=== PATIENT | male | born 1955 | race Caucasian/White ===

== ENCOUNTER → 2017-03-20 | Outpatient (CLI) | payer OTHER ==
[~2017-03-20] MED LIST: ACID CONTROL20 MG PO; ADVAIR 250-501 EAC1; ADVAIR 250-501 EACH PO; ADVAIR 2501 DISK W/D PO; AGGRENOX1 CAP PO; ALBUTEROL 0.5ML INH; ALBUTEROL17 GM; ALBUTEROL17 GM INH; ALBUTEROL2.5 MG/0.5 INH; ALDACTONE PO; ALDACTONE100 MG PO; ALPRAZOLAM PO; AMBIEN PO; ASPIRIN ENTERI325 M1 PO; AZITHROMYCIN250 MG PO; BP PILL; CELEXA PO; COMBIVENT INH14.7 GM IH; COMBIVENT INH14.7 GM INH; COMBIVENT U/D3 M2 INH; CORGARD20 MG PO; CORTISPORIN-TC10 ML OT; DICLOFENAC PO; DICYCLOMINE HCL20 MG PO; DILANTIN; DILANTIN PO; ERY-TAB500 MG; FIORICET1 TAB PO; FLAGYL PO; FLEXERIL PO; FLEXERIL10 M1 PO; FLEXERIL10 MG PO; KEFLEX PO; KEFLEX500 MG PO; KETOPROFEN PO; KRISTALOSE10 GM PO; KRISTALOSE20 G/PK1 PO; LACTULOSE PO; LACTULOSE10 G/15 M1 PO; LASIX PO; LASIX20 MG PO; LEVAQUIN PO; LISINOPRIL; LISINOPRIL PO; LISINOPRIL10 MG PO; LISINOPRIL30 MG PO; LORTAB 5/500 TA1 TA1 PO; LORTAB 7.5-5001 TAB PO; NAPROXEN PO; NICOTINE TRANSD21 MG EXT; OMEPRAZOLE20 M1 PO; OMEPRAZOLE20 M2 PO; PHENERGAN; PHENERGAN25 M1 PO; PHENYTOIN SODI100 M5 PO; PREDNISONE PO; PREDNISONE50 MG PO; PRILOSEC; PRILOSEC PO; PRILOSEC20 MG PO; PROTONIX; RIBAVIRIN200 M1 PO; SYMBICORT INH; THIAMINE HCL100 MG PO; VICODIN 5/1 TAB 5/50 PO; VOLTAREN75 MG PO; XIFAXAN550 MG PO; ZESTRIL30 MG PO; [UNRECOGNIZED DRUG - OTHER] PO
[2017-03-20 12:08] LABS: INR 1.1; PROTHROMBIN TIME (PATIENT) 11.6 SECONDS (9.6-11.5)
[2017-03-20 12:55] LABS: ALBUMIN SERUM 3.5 g/dL (3.5-5.0); BILIRUBIN,TOTAL 2.6 mg/dL (0.2-2.0); CALCIUM SERUM 9.2 mg/dL (8.4-10.2); GLOM FILT RATE Estimated 80.9 mL/min (>60); POTASSIUM 4.6 mmol/L (3.5-5.1); PROTEIN TOTAL SERUM 6.9 g/dL (6.0-8.3)
== END | disposition home or self-care (01) ==
LOC: CLAB 11:17
DX: C22.0 Liver cell carcinoma (principal)
CPT/HCPCS: 36415; 80053; 85610